=== PATIENT | female | born 1955 | race Caucasian/White ===

== ENCOUNTER 2017-03-21 20:08 | Inpatient (IN) | payer MEDICARE, MEDICAID ==
[~2017-03-21] VITALS: Ht 175.3 cm; Wt 59.1 kg
[~2017-03-21 20:08] MED LIST: ACET650S12 PR; ACLI400A2 INH; ALBU0.63 NEB; ALBU18HF INH; ALPR-475 PO; ALPR0.02 PO; ALPR0.5T6 PO; BACL-19 PO; BISA-49 PO; BISA10SU65 PR; CEFD300C37 PO; CHOL10003 PO; CYPR4TAB PO; DEXA2TAB PO; DIAZ2TAB3 PO; DIAZ5TAB4 PO; DOCU100C8 PO; DULO30CA2 PO; ENOX40SY4 SQ; FAMO20TA7 PO; FLUO20TA25 PO; FLUT1DIS3 INH; HYDR10TA4 PO; LACT10SO28 PO; LEVO750T6 PO; LISI-170 PO; LORA-446 PO; MAGN64TA9 PO; METH4TAB2 PO; METH4TAB7 PO; METH750T2 PO; METH750T87 PO; MIRT30TA4 PO; NICO1PAT5 TD; NITR50CA PO; NYST1000 PO; OXYB10TA PO; OXYB5TAB7 PO; OXYC10TA32 PO; OXYC10TA6 PO; OXYC15TA PO; OXYC15TA60 PO; OXYC40TA27 PO; OXYC5TAB3 PO; POLY17PO5 PO; PRED20TA PO; PREG25CA PO; PROM12.55 PO; PROM12.553 IM; PROM25TA10 PO; SENN1TAB94 PO; SULF1TAB24 PO; TIZA4TAB PO; TRAM50TA2 PO; ZIPR20CA2 PO; ZOLP-413 PO; ZOLP10TA PO
[2017-03-21] MEDS ORDERED: DIPHENHYDRAMINE 50 MG/ML, 1ML ONE (20:10)
[2017-03-21] MEDS ORDERED: PLEASE ENTER HEIGHT AND WEIGHT MC SCH (20:30)
[2017-03-21] MEDS ORDERED: DIPHENHYDRAMINE 50 MG/ML, 1ML IVPush ONE (20:30)
[2017-03-21] MEDS ORDERED: METH750T87 PO (20:59)
[2017-03-21] MEDS ORDERED: ASPI-515 PO (21:06)
[2017-03-21] MEDS ORDERED: ALPR-475 PO (21:06)
[2017-03-21 21:11] LABS: ASPARTATE AMINO TRANSFERASE 12 U/L (15-37); BLOOD UREA NITROGEN 7 mg/dL (7-18)
[2017-03-21] MEDS ORDERED: ZIPRASIDONE 20 MG INJ IM ONE (23:30)
[2017-03-21] MEDS ORDERED: BISACODYL 5 MG EC TABLET PO PRN (23:30)
[2017-03-21] MEDS ORDERED: TEMPLATE NON-FORMULARY MED. (Albuterol Sulfate (Ventolin Hfa) 2 PUFF(S)) INH PRN (23:30)
[2017-03-21] MEDS ORDERED: PROMETHAZINE 12.5 MG SUPP PR PRN (23:30)
[2017-03-21] MEDS ORDERED: ALBUTEROL SULFATE 2.5 MG/3 ML NEB PRN (23:30)
[2017-03-21 23:32] VITALS: BP 167/94
[2017-03-21 23:48] LABS: PATH.CAST-FLAG NOT PRESENT; SPERM-FLAG NOT PRESENT; SRC-FLAG NOT PRESENT; XTAL-FLAG NOT PRESENT; YLC-FLAG NOT PRESENT
[2017-03-21] MEDS: METHOCARBAMOL 750 MG TABLET PO SCH (23:52)
[2017-03-22 03:37] VITALS: BP 108/64
[2017-03-22] MEDS: NYSTATIN 500,000 UNITS/5 ML UDC PO SCH ×4 (06:00→21:44)
[2017-03-22] MEDS ORDERED: OxyconTIN ER 20 MG TAB.ER ONE ×3 (08:12→21:41)
[2017-03-22] MEDS: OXYcodone IR 5MG TABLET PO PRN ×4 (08:14→21:44)
[2017-03-22] MEDS: DIAZEPAM 2 MG TABLET PO PRN ×3 (08:15→21:44)
[2017-03-22] MEDS: OxyconTIN ER 40 MG TAB.ER PO SCH ×3 (08:16→21:44)
[2017-03-22] MEDS: PREGABALIN 25 MG CAPSULE PO SCH ×3 (08:17→21:43)
[2017-03-22] MEDS: DULOXETINE 30 MG CAPSULE.DR PO SCH (08:17)
[2017-03-22] MEDS: METHOCARBAMOL 750 MG TABLET PO SCH ×2 (08:18→21:44)
[2017-03-22] MEDS: ASPIRIN 81 MG TABLET EC PO SCH (08:18)
[2017-03-22] MEDS: OXYBUTYNIN CHLORIDE 5 MG TABLET PO SCH ×2 (08:18→21:44)
[2017-03-22] MEDS: POLYETHYLENE GLYCOL 17 GM PACKET PO SCH (08:19)
[2017-03-22] MEDS: LACTULOSE 10 GM/15 ML UDC PO SCH (08:19)
[2017-03-22] MEDS: DOCUSATE 100 MG CAPSULE PO SCH ×2 (08:19→21:44)
[2017-03-22] MEDS: NICOTINE 21 MG/24 HR PATCH.TD24 TD SCH (08:20)
[2017-03-22 09:42] VITALS: BP 114/79
[2017-03-22] MEDS ORDERED: methylPREDNISolone 4mg DOSE PACK ONE (09:49)
[2017-03-22] MEDS ORDERED: methylPREDNISolone 4mg DOSE PACK PO SCH (10:00)
[2017-03-22 13:24] VITALS: BP 123/65
[2017-03-22 19:42] VITALS: BP 114/79
[2017-03-23] MEDS ORDERED: KETOROLAC 30 MG/1 ML IVPush ONE (00:30)
[2017-03-23 00:49] VITALS: BP 118/84
[2017-03-23] MEDS: DIAZEPAM 2 MG TABLET PO PRN ×3 (04:56→18:53)
[2017-03-23] MEDS: NYSTATIN 500,000 UNITS/5 ML UDC PO SCH ×4 (04:57→21:45)
[2017-03-23] MEDS: OXYcodone IR 5MG TABLET PO PRN ×3 (04:57→18:53)
[2017-03-23 08:01] VITALS: BP 111/70
[2017-03-23] MEDS: OxyconTIN ER 40 MG TAB.ER PO SCH ×3 (09:00→21:00)
[2017-03-23] MEDS: POLYETHYLENE GLYCOL 17 GM PACKET PO SCH (09:00)
[2017-03-23] MEDS ORDERED: OxyconTIN ER 20 MG TAB.ER ONE ×3 (10:09→21:38)
[2017-03-23] MEDS: OXYBUTYNIN CHLORIDE 5 MG TABLET PO SCH ×2 (10:17→21:45)
[2017-03-23] MEDS: ASPIRIN 81 MG TABLET EC PO SCH (10:18)
[2017-03-23] MEDS: METHOCARBAMOL 750 MG TABLET PO SCH ×2 (10:18→21:45)
[2017-03-23] MEDS: DOCUSATE 100 MG CAPSULE PO SCH ×2 (10:18→21:44)
[2017-03-23] MEDS: LACTULOSE 10 GM/15 ML UDC PO SCH (10:18)
[2017-03-23] MEDS: PREGABALIN 25 MG CAPSULE PO SCH ×3 (10:18→21:45)
[2017-03-23] MEDS: DULOXETINE 30 MG CAPSULE.DR PO SCH ×2 (10:18→21:44)
[2017-03-23] MEDS: NICOTINE 21 MG/24 HR PATCH.TD24 TD SCH (10:18)
[2017-03-23 12:15] VITALS: BP 115/79
[2017-03-23 20:03] VITALS: BP 129/79
[2017-03-23] MEDS: MIRTAZAPINE 30 MG TAB.RAPDIS PO PRN (23:00)
[2017-03-24 02:31] VITALS: BP 98/68
[2017-03-24] MEDS: OXYcodone IR 5MG TABLET PO PRN ×5 (03:42→22:46)
[2017-03-24] MEDS: NYSTATIN 500,000 UNITS/5 ML UDC PO SCH ×4 (05:31→21:36)
[2017-03-24] MEDS: DIAZEPAM 2 MG TABLET PO PRN ×2 (06:37→13:32)
[2017-03-24 06:47] VITALS: BP 102/70
[2017-03-24] MEDS ORDERED: OxyconTIN ER 20 MG TAB.ER ONE ×3 (09:20→21:30)
[2017-03-24] MEDS: OxyconTIN ER 40 MG TAB.ER PO SCH ×3 (09:25→21:37)
[2017-03-24] MEDS: PREGABALIN 25 MG CAPSULE PO SCH ×3 (09:30→21:36)
[2017-03-24] MEDS: OXYBUTYNIN CHLORIDE 5 MG TABLET PO SCH ×2 (09:30→21:36)
[2017-03-24] MEDS: ASPIRIN 81 MG TABLET EC PO SCH (09:30)
[2017-03-24] MEDS: DOCUSATE 100 MG CAPSULE PO SCH ×2 (09:30→21:36)
[2017-03-24] MEDS: METHOCARBAMOL 750 MG TABLET PO SCH ×2 (09:30→21:36)
[2017-03-24] MEDS: LACTULOSE 10 GM/15 ML UDC PO SCH (09:31)
[2017-03-24] MEDS: DULOXETINE 30 MG CAPSULE.DR PO SCH ×2 (09:31→21:36)
[2017-03-24] MEDS: NICOTINE 21 MG/24 HR PATCH.TD24 TD SCH (09:31)
[2017-03-24] MEDS: POLYETHYLENE GLYCOL 17 GM PACKET PO SCH (09:31)
[2017-03-24 13:25] VITALS: BP 104/70
[2017-03-24] MEDS ORDERED: DULO30CA2 PO (17:00)
[2017-03-24] MEDS ORDERED: METH750T2 PO (17:00)
[2017-03-24] MEDS ORDERED: ERGO500017 PO (17:00)
[2017-03-24] MEDS ORDERED: ERGOCALCIFEROL 50,000 UNIT CAPSULE PO SCH (17:00)
[2017-03-24 19:45] VITALS: BP 105/59
[2017-03-24] MEDS: MIRTAZAPINE 30 MG TAB.RAPDIS PO PRN (23:09)
[2017-03-25] MEDS: DIAZEPAM 2 MG TABLET PO PRN (01:54)
[2017-03-25 02:18] VITALS: BP 120/77
[2017-03-25] MEDS: OXYcodone IR 5MG TABLET PO PRN ×2 (05:57→12:41)
[2017-03-25] MEDS: NYSTATIN 500,000 UNITS/5 ML UDC PO SCH ×2 (05:57→11:40)
[2017-03-25 07:03] VITALS: BP 116/78
[2017-03-25] MEDS ORDERED: OxyconTIN ER 20 MG TAB.ER ONE (08:34)
[2017-03-25] MEDS: ASPIRIN 81 MG TABLET EC PO SCH (08:37)
[2017-03-25] MEDS: DULOXETINE 30 MG CAPSULE.DR PO SCH (08:37)
[2017-03-25] MEDS: LACTULOSE 10 GM/15 ML UDC PO SCH (08:37)
[2017-03-25] MEDS: DOCUSATE 100 MG CAPSULE PO SCH (08:37)
[2017-03-25] MEDS: OXYBUTYNIN CHLORIDE 5 MG TABLET PO SCH (08:37)
[2017-03-25] MEDS: POLYETHYLENE GLYCOL 17 GM PACKET PO SCH (08:37)
[2017-03-25] MEDS: PREGABALIN 25 MG CAPSULE PO SCH (08:37)
[2017-03-25] MEDS: NICOTINE 21 MG/24 HR PATCH.TD24 TD SCH (08:38)
[2017-03-25] MEDS: METHOCARBAMOL 750 MG TABLET PO SCH (08:38)
[2017-03-25] MEDS: OxyconTIN ER 40 MG TAB.ER PO SCH (08:39)
[2017-03-25 13:00] VITALS: BP 103/68
== END 2017-03-25 14:26 | DRG 551 ==
LOC: ED 21:20 → EDIP 21:25 → 4NOR 23:11
PROVIDERS: ADMIT Internal Medicine; ATTEND Internal Medicine
DX: S22.060A Wedge compression fracture of T7-T8 vertebra, initial encounter for closed fracture (principal); J96.20 Acute and chronic respiratory failure, unspecified whether with hypoxia or hypercapnia; I50.32 Chronic diastolic (congestive) heart failure; F11.20 Opioid dependence, uncomplicated; E44.0 Moderate protein-calorie malnutrition; Z68.1 Body mass index [BMI] 19.9 or less, adult; S22.070A Wedge compression fracture of T9-T10 vertebra, initial encounter for closed fracture; E55.9 Vitamin D deficiency, unspecified; F17.200 Nicotine dependence, unspecified, uncomplicated; F29 Unspecified psychosis not due to a substance or known physiological condition; F31.9 Bipolar disorder, unspecified; F40.00 Agoraphobia, unspecified; F60.3 Borderline personality disorder; G89.4 Chronic pain syndrome; I11.0 Hypertensive heart disease with heart failure; J44.9 Chronic obstructive pulmonary disease, unspecified; K21.9 Gastro-esophageal reflux disease without esophagitis; R29.6 Repeated falls; W19.XXXA Unspecified fall, initial encounter; Z80.8 Family history of malignant neoplasm of other organs or systems; Z98.1 Arthrodesis status; Z95.5 Presence of coronary angioplasty implant and graft; Z99.81 Dependence on supplemental oxygen; Y92.89 Other specified places as the place of occurrence of the external cause; Y93.89 Activity, other specified; Z90.49 Acquired absence of other specified parts of digestive tract; Z90.710 Acquired absence of both cervix and uterus; Z98.51 Tubal ligation status; Z80.42 Family history of malignant neoplasm of prostate; Z80.9 Family history of malignant neoplasm, unspecified; S22.050A Wedge compression fracture of T5-T6 vertebra, initial encounter for closed fracture; S22.080A Wedge compression fracture of T11-T12 vertebra, initial encounter for closed fracture; M62.830 Muscle spasm of back
CPT/HCPCS: 36415; 72072; 80053; 81001; 82306; 82962; 83605; 84439; 84443; 85025; 85651; 86140; 87086; 96374; J1885; J3486; J7509; J1200